=== PATIENT | male | born 1965 ===

== ENCOUNTER 2020-06-29 11:04 | Day surgery (SDC) | payer BC ==
[~2020-06-29 11:04] MED LIST: Lactated Ringers 1,000 ML IV SCH; Sodium Chloride 0.9% 10 ML SDV IV PRN; Sodium Chloride 0.9% 10 ML Syringe FLUSH PRN; Sodium Chloride 0.9% 2.5 ML Syringe FLUSH PRN
[2020-06-29] MEDS ORDERED: Glycopyrrolate 0.2 MG/ML SDV ONE (11:24)
[2020-06-29] MEDS ORDERED: Midazolam 1 MG/ML 2 ML SDV ONE (11:24)
[2020-06-29] MEDS ORDERED: Propofol 200 MG/20 ML SDV ONE ×2 (11:24→11:56)
[2020-06-29] MEDS ORDERED: Lidocaine 2% 5 ML SDV ONE (11:24)
--- NOTE | 2020-06-29 11:56 | PCM.PREANE ---
Preanesthetic Assessment - Anesthesia/Transfusion/Family Hx Anesthesia History: Prior Anesthesia Without Reaction Family History of Anesthesia Reaction: No Transfusion History: No Prior Transfusion(s) - Review of Systems General: No Symptoms Pulmonary: No Symptoms Cardiovascular: No Symptoms Gastrointestinal: No Symptoms Neurological: No Symptoms Other: Reports: None - Physical Assessment NPO Status Date: 06/29/20 NPO Status Time: 00:01 Height: 5 ft 6 in Weight: 203 lb ASA Class: 2 Mental Status: Alert & Oriented x3 Airway Class: Mallampati = 2 Dentition: Reports: Normal Dentition ROM/Head Extension: Full Lungs: Clear to Auscultation, Normal Respiratory Effort Cardiovascular: Regular Rate, Regular Rhythm - Allergies Allergies/Adverse Reactions: Allergies Allergy/AdvReac Type Severity Reaction Status Date / Time No Known Allergies Allergy Verified 06/26/20 13:51 - Anesthesia Plan Pre-Op Medication Ordered: None - Acknowledgements Anesthesia Type Planned: General Anesthesia Pt an Appropriate Candidate for the Planned Anesthesia: Yes Alternatives and Risks of Anesthesia Discussed w Pt/Guardian: Yes Pt/Guardian Understands and Agrees with Anesthesia Plan: Yes Additional Comments: npo obesity bmi 33 etoh weekend beers tob none kim no cv problems par no questions PreAnesthesia Questionnaire HEENT History: Reports: Other (See Below) Other HEENT History: uses reading glasses Cardiovascular History: Reports: None Respiratory History: Reports: None Gastrointestinal History: Reports: GERD, Other (See Below) Other Gastrointestinal History: dysphagia Genitourinary History: Reports: None Musculoskeletal History: Reports: Other (See Below) Other Musculoskeletal History: shoulder pain Neurological History: Reports: None Psychiatric History: Reports: None Endocrine/Metabolic History: Reports: Obesity/BMI 30+ Hematologic History: Reports: None Immunologic History: Reports: None Oncologic (Cancer) History: Reports: None Dermatologic History: Reports: None - Past Surgical History Head Surgeries/Procedures: Reports: None HEENT Surgical History: Reports: None GI Surgical History: Reports: Appendectomy Male Surgical History: Reports: None Neurological Surgical History: Reports: None Musculoskeletal Surgical History: Reports: None - SUBSTANCE USE Tobacco Use Status *Q: Never Tobacco User Recreational Drug Use History: No - HOME MEDS Home Medications: Home Meds Diclofenac Sodium [Voltaren] 75 mg PO BID 06/26/20 [History] Omeprazole 40 mg PO DAILY 06/26/20 [History] - CURRENT (IN HOUSE) MEDS Current Meds: Current Medications Lactated Ringer's (Ringers, Lactated) 1,000 mls @ 125 mls/hr IV ASDIRECTED BARBIE Sodium Chloride (Sodium Chloride 0.9% 10 Ml Syringe) 10 ml FLUSH ASDIRECTED PRN PRN Reason: Keep Vein Open Sodium Chloride (Sodium Chloride 0.9% 2.5 Ml Syringe) 2.5 ml FLUSH ASDIRECTED PRN PRN Reason: Keep Vein Open Sodium Chloride (Sodium Chloride 0.9% 10 Ml Syringe) 10 ml FLUSH ASDIRECTED PRN PRN Reason: Keep Vein Open Sodium Chloride (Sodium Chloride 0.9% 2.5 Ml Syringe) 2.5 ml FLUSH ASDIRECTED PRN PRN Reason: Keep Vein Open Sodium Chloride (Sodium Chloride 0.9% 10 Ml Sdv) 10 ml IV ASDIRECTED PRN PRN Reason: IV Use Discontinued Medications Glycopyrrolate (Glycopyrrolate 0.2 Mg/Ml Sdv) Confirm Administered Dose 0.2 mg .ROUTE .STK-MED ONE Stop: 06/29/20 11:25 Lidocaine (Lidocaine 2% 5 Ml Sdv) Confirm Administered Dose 5 ml .ROUTE .STK-MED ONE Stop: 06/29/20 11:25 Midazolam HCl (Midazolam 1 Mg/Ml 2 Ml Sdv) Confirm Administered Dose 2 mg .ROUTE .STK-MED ONE Stop: 06/29/20 11:25 Propofol (Propofol 200 Mg/20 Ml Sdv) Confirm Administered Dose 200 mg .ROUTE .STK-MED ONE Stop: 06/29/20 11:25
--- NOTE | 2020-06-29 13:48 | PCM.OPNOTE ---
- General Post-Op/Procedure Note Date of Surgery/Procedure: 06/29/20 Operative Procedure(s): Diagnostic EGD and screening colonoscopy Findings: Sigmoid colon polyp, mild esophagitis Pre Op Diagnosis: Dysphagia, screening colonoscopy Post-Op Diagnosis: Esophagitis, sigmoid colon polyp Anesthesia Technique: [facility] [place] Primary Surgeon: Yennifer Etienne Condition: Good
--- NOTE | 2020-06-29 14:27 | PCM.POSTAN ---
POST ANESTHESIA ASSESSMENT - MENTAL STATUS Mental Status: Alert - VITAL SIGNS Vital Signs: Last Vital Signs Temp 36.1 C 06/29/20 11:30 Pulse 62 06/29/20 14:23 Resp 16 06/29/20 14:23 BP 103/73 06/29/20 14:23 Pulse Ox 95 06/29/20 14:23 - RESPIRATORY Respiratory Status: Respiratory Rate WNL - CARDIOVASCULAR CV Status: Pulse Rate WNL - GASTROINTESTINAL GI Status: No Symptoms - PAIN Pain Score: 0 - POST OP HYDRATION Hydration Status: Adequate & Stable (Progressing well.)
--- NOTE | 2020-06-29 14:46 | PCM48HPAN ---
Post Anesthesia Note - EVALUATION WITHIN 48HRS OF ANESTHETIC Vital Signs in Normal Range: Yes Patient Participated in Evaluation: Yes Respiratory Function Stable: Yes Airway Patent: Yes Cardiovascular Function Stable: Yes Hydration Status Stable: Yes Pain Control Satisfactory: Yes Nausea and Vomiting Control Satisfactory: Yes Mental Status Recovered: Yes Vital Signs: Last Vital Signs Temp 36.1 C 06/29/20 11:30 Pulse 75 06/29/20 14:28 Resp 16 06/29/20 14:28 BP 107/79 06/29/20 14:28 Pulse Ox 95 06/29/20 14:28 - COMMENTS/OBSERVATIONS Free Text/Narrative:: Doing well. Ready for discharge.
--- NOTE | 2020-06-30 18:45 | OR ---
SURGEON: YENNIFER ETIENNE MD DATE OF PROCEDURE: 06/29/2020 PREOPERATIVE DIAGNOSES: 1. Dysphagia. 2. Screening colonoscopy. POSTOPERATIVE DIAGNOSES: 1. Gastroesophageal reflux disease with esophagitis. 2. Sigmoid colon polyp. PROCEDURE PERFORMED: 1. Diagnostic esophagogastroduodenoscopy. 2. Screening colonoscopy with polypectomy. PRIMARY SURGEON: Yennifer Etienne MD ANESTHESIA: MAC. INSTRUMENT USED: Olympus endoscope and colonoscope. EXTENT OF EXAM: To the second portion of duodenum, to the cecum. PREPARATION: Good. LIMITATIONS: None. INDICATIONS FOR EXAMINATION: The patient is a 54-year-old female who presented to his primary care provider's office with progressively worsening dysphagia. He was placed on a PPI and came to see me. The patient states that since being on the PPI, his symptoms have improved. He has never had a colonoscopy. The patient and I discussed the need for diagnostic EGD as well as a screening colonoscopy. I explained the procedure to the patient. I explained the expected perioperative course. I explained the risks including bleeding, infection, or damage to surrounding structures including perforation during either procedure. The patient verbalized understanding and wishes to proceed. PROCEDURE IN DETAIL: The patient was brought to the endoscopy suite and placed in left lateral decubitus position. A time-out was completed verifying the patient's name, age, date of , allergies, and procedure to be performed. Monitored anesthesia care was induced. A bite block was placed in the patient's mouth and continuous oxygen was provided via face mask throughout the procedure. After adequate sedation was achieved, a well-lubricated endoscope was placed in the patient's mouth and advanced under direct visualization to the level of the second portion of duodenum. This appeared normal and a photograph taken. The scope was then straightened out and fully withdrawn while examining the color, texture, anatomy, and integrity of the mucosa of the upper GI tract. The duodenum appeared normal. The scope was then brought into the stomach, and a photograph was taken of the pylorus and GE junction. Both appeared grossly normal. The stomach was free of inflammation or ulceration. A biopsy was taken of the gastric antrum, body, and fundus and sent for histologic review and H. pylori testing. The scope was then brought into the distal esophagus. The Z-line appeared slightly irregular, and the distal esophagus appeared to have some mild esophagitis. A biopsy was taken of the distal esophagus and sent to Pathology, labeled as esophagus. A photograph was taken of the area. There was no evidence of a stricture. The remainder of the esophagus appeared normal. The scope was removed, and this portion of the procedure terminated. A digital rectal exam was performed. This exam was within normal limits. A well- lubricated colonoscope was inserted in the rectum and advanced under direct visualization to the level of the cecum. The cecum was identified by both visual and anatomic landmarks. A photograph was taken of the cecal cap as well as with the scope retroflexed within the cecum. The scope was then fully withdrawn while examining the color, texture, anatomy, and integrity of the mucosa from the cecum to the anal canal. The patient was found to have a small sessile polyp in the sigmoid colon. This was removed using a cold loop snare. It was sent to Pathology, labeled as sigmoid colon polyp. The scope was then brought into the rectum and retroflexed to allow visualization of the anal canal opening. This appeared normal, and a photograph was taken. The scope was straightened out and fully withdrawn. The cecum to anus time was 9 minutes. The patient tolerated the procedure well and was transferred to the PACU in stable condition. ENDOSCOPIC DIAGNOSES: 1. Gastroesophageal reflux disease with esophagitis. 2. Sigmoid colon polyp. RECOMMENDATIONS: Follow up in clinic in 2 weeks. The patient is scheduled to have an esophagram. We will go over today's results as well as the results of the esophagram on that date. KAITLIN DALY /[id number]
== END 2020-06-29 14:50 | disposition home or self-care (01) ==
LOC: MW.SDS 11:04
PROVIDERS: ATTEND Surgery
DX: Z12.11 Encounter for screening for malignant neoplasm of colon (principal); D12.5 Benign neoplasm of sigmoid colon; K21.00 Gastro-esophageal reflux disease with esophagitis, without bleeding; E66.9 Obesity, unspecified; Z68.33 Body mass index [BMI] 33.0-33.9, adult; Z79.899 Other long term (current) drug therapy; Z90.49 Acquired absence of other specified parts of digestive tract
CPT/HCPCS: 43239; 45385; J2250; J2704; J3490; J7120; 00813; 88305; 88312